=== PATIENT | male | born 1945 | race African-American/Black ===

== ENCOUNTER → 2020-08-18 | Day surgery (SDC) | payer OTHER ==
--- NOTE | 2020-08-18 11:17 | RAD REPORT ---
EXAM DESCRIPTION: US - Guided FNA Non Breast - 08/18/2020 10:27 am CLINICAL HISTORY: E04.1 COMPARISON: No comparisons FINDINGS: Preoperative diagnosis: 3.9 cm left thyroid nodule.. Post operative diagnosis: Same. Conscious Sedation: None Fluoroscopy time: None Contrast used: None Estimated blood loss: Minimal Specimens:5 x 25 gauge FNA specimens. The left neck was prepped and draped in the usual sterile fashion. 1% lidocaine was infiltrated into the subcutaneous tissues for local anesthesia. Real time ultrasound scanning of the left thyroid demo nstrated 3.9 cm echogenic nodule. Under ultrasound guidance, using 25 gauge FNA needles, 5 specimens were obtained of this lesion and sent to pathology for evaluation. There were no complications. IMPRESSION: Successful ultrasound-guided left thyroid nodule FNA.
== END ==
LOC: FNA 09:52
PROVIDERS: ATTEND Nurse Practitioner Family
PROC: 0GJK3ZZ Inspection of Thyroid Gland, Percutaneous Approach (ICD-10-PCS; principal; 2020-08-18)
DX: E04.1 Nontoxic single thyroid nodule (principal)
CPT/HCPCS: 88162